=== PATIENT | female | born 1995 | race Two or more races ===

== ENCOUNTER → 2024-11-07 | Outpatient (CLI) | payer MEDICAID, SELFPAY ==
--- NOTE | 2024-11-07 14:30 | XR_ITS ---
Examination: Retroperitoneal ultrasound, complete Technique: Multiple high resolution grayscale images of the retroperitoneum obtained, including kidneys and bladder. Exam date and time:November 07, 2024 1435 hours INDICATIONS: Acute renal failure on left are examination this week FINDINGS: Right kidney 10.3 cm cortex 2.4 cm Left kidney 7.7 cm cortex 1.7 cm No hydronephrosis No bladder mass or bladder calculi Bladder prevoid: 271 cc IMPRESSION: Small left kidney No hydronephrosis
== END | disposition home or self-care (01) ==
PROVIDERS: Referring Provider Internal Medicine; Visit Provider Internal Medicine
DX: N28.89 Other specified disorders of kidney and ureter (principal)
CPT/HCPCS: 76770

== ENCOUNTER → 2025-01-09 | Outpatient (CLI) | payer MEDICAID, SELFPAY ==
[2025-01-04 12:38] LABS: Beta HCG,Quantitative < 1 mIU/mL (<5.0)
--- NOTE | 2025-01-09 12:30 | XR_ITS ---
EXAMINATION: Nuclear medicine kidney imaging and flow and function multiple studies Date and time: January 09, 2025, 0838 hours INDICATIONS: Ultrasound examination November 07, 2024 small left kidney, no hydronephrosis TECHNIQUE AND FINDINGS: Intravenous administration 10.6 mCi technetium 99m MAG3 Flow and function curves generated to 60 minutes Normal flow and function left kidney 80% flow to the right kidney compared to the left kidney, normal renal function IMPRESSION: Bilateral normal renal function
[2025-01-09 12:47] LABS: Beta HCG,Quantitative 1 mIU/mL (<5.0)
== END | disposition home or self-care (01) ==
LOC: SNUC 11:54
PROVIDERS: Radiology Diagnostic Radiology; PCP Internal Medicine; Referring Provider Internal Medicine; Visit Provider Internal Medicine
DX: N27.0 Small kidney, unilateral (principal); Z32.00 Encounter for pregnancy test, result unknown
CPT/HCPCS: 36415; 78709; 84702; 84703; A9562